=== PATIENT | female | born 1980 | race Caucasian/White ===

== ENCOUNTER → 2023-02-01 08:01 | Outpatient (BNVA) | payer OTHER, SELFPAY | PROVIDERS: PCP Family Medicine; Visit Provider Physician Assistant ==

== ENCOUNTER 2023-02-03 08:19 | Outpatient (AMB) | payer OTHER, SELFPAY ==
--- NOTE | 2023-02-03 10:42 | A.OFFVIS_ITS ---
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 Allergies No Known Allergies Allergy (Verified 02/03/23 10:42) Medication List - Last Reconciled 02/03/23 by Alfredito Field MD bupropion HCl (Wellbutrin XL) 150 mg PO QAM cholecalciferol (vitamin D3) 50 mcg PO DAILY hydrochlorothiazide 25 mg PO DAILY lactobacillus combination no.9 (Adult 50 Plus Probiotic) PO magnesium 400 mg PO DAILY metformin 500 mg PO DAILY sertraline (Zoloft) 50 mg PO DAILY valacyclovir 500 mg PO DAILY HPI 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 HPI Details Start time: 10.33am, End time: 11.33am ?I spent 55 minutes speaking with the patient on the phone plus an additional 5 minutes reviewing and updating records for a total of 60 minutes HPI Comments History of Present Illness Details Previous weight loss efforts: Fitness pal, Weight watchers, Atkins, [place], Medically supervised diet Wakes up: 6.30am, sleeps: 11.30pm Breakfast: 8am (cereal, bagel, eggs) Lunch: 12pm (pizza) Dinner: 6.30pm (pizza, burger, burrito) Snacks: 10am (fruit, or cheese and crackers), 3pm (cheese and crackers, bar), 8pm (sweets) Exercise: none, has home treadmill and rowing machine Fluids: Coffee 1 cup per day (creamer), tea: rarely, soda: none, juice: none, ETOH: 1/month [facility] Medical History (Updated 02/03/23 @ 10:50 by Alfredito Field MD) Knee pain Back pain Anxiety Depression Herpes, genital Sleep apnea treated with continuous positive airway pressure (CPAP) Hypertension Non-insulin dependent type 2 diabetes mellitus Morbid obesity Surgical History (Updated 02/03/23 @ 10:50 by Alfredito Field MD) H/O wisdom tooth extraction History of carpal tunnel release of both wrists History of tonsillectomy Assessment & Plan Assessment & Plan (1) Morbid obesity: Code(s): E66.01 - Morbid (severe) obesity due to excess calories Plan: 1.? Plan for lap sleeve gastrectomy. If diaphragmatic or ventral hernias are present at time of surgery, these will be repaired laparoscopically as well. Risks and complications were discussed in detail including possible conversion to an open procedure, anastomotic leak, bleeding requiring transfusion, small bowel obstruction, , DVT and pulmonary embolism, cardiac, or pulmonary complications, as insecticide maker complications such as anastomotic ulcer, insufficient weight loss and vitamin deficiencies. I emphasized the importance of close follow-up, adherence to instructions and good communication. 2. Nutritional counseling. Start with 2 CELEBRATE REBUILD protein (buy at [facility] [employer] [facility]) shakes (ONE scoop EACH in 8oz low fat unsweetened almond milk each) at 8am-10am and 11am-1pm, 1 protein bar (CELEBRATE protein bars, buy at [facility] [employer]) at 2pm-4pm, dinner at 5pm-6pm (12 forks of protein and 12 forks of salad/vegetables), one Celebrate bar at 7pm-9pm and another HALF protein bar at 10pm-11pm So you do 2 protein shakes, 2.5 protein bars and one meal per day. Meal to include lean meat (beef, fish, pork, turkey, chicken), or nigerian yogurt, or egg whites, or beans with a salad with olive oil and fruits (berries, pears, apples, kiwi). Avoid salt, breads, potatoes, rice, pasta, desserts. 3. Each shake would be drunk slowly, like coffee in a period of 2 hours. May add your coffee into your shakes, if flavors match. 4. Cut each bar in 4 pieces and eat each piece in 30min ?to make each bar last 2 hours. 5. I emphasized the importance of measuring accurately the food portion and measure it when serving the food in plate 6. The meal portions include 12 full-size forks of meat and 12 full-size forks of salad. You always eat the meat portion but you can replace up to 6 forks for salad/vegetables with rice, potatoes or pasta, or a fruit ?if you like. The less you do it the better weight loss will be. 7. One full-size fork is what it can be scooped on the fork without falling aside and not what can be bit with the fork. Use regular forks like those you find in a typical restaurant. 8.? Please send me weight measurements as soon as possible and then once a week. Always include your diet and exercise plan. 9. Start treadmill with an incline of 4.0 and speed of 3.5. Increase incline by 1 every 3 min to a max incline of 10.0, stay 3min at 10.0 and then return to 4.0 and repeat same steps until calorie goal is met. Goal is to burn 2000 calories per week on exercise, which means either 300 calories daily, or 400 calories 5 days per week, or 500 calories 4 days per week, or 650 calories 3 days per week. 10. You can also use some days your rowing machine for 300 calories, or split the workouts and do 150 calories at the treadmill and 150 calories at the rowing machine. 11.?It is important of avoiding and for at least 18 months postoperatively and has been discussed at the infosession. 12. Goal is to lose at least 1.5-2lbs per week 13. Goal to lose 10% of your weight before surgery, which is about 32lbs. Ultimate weight goal: 287lbs before surgery 14. Please follow the diet plan exactly without any change. If you don't like something about the plan or you feel hungry you need to communicate with me so I can help you revise the plan. You should not change the plan yourself. (2) Non-insulin dependent type 2 diabetes mellitus: Code(s): E11.9 - Type 2 diabetes mellitus without complications (3) Hypertension: Code(s): I10 - Essential (primary) hypertension (4) Sleep apnea treated with continuous positive airway pressure (CPAP): Code(s): G47.30 - Sleep apnea, unspecified Orders: Orders Insulin Today E11.9 - Type 2 diabetes mellitus without complications, E66.01 - Morbid (severe) obesity due to excess calories, G47.30 - Sleep apnea, unspecified, I10 - Essential (primary) hypertension IRON PROFILE Today E11.9 - Type 2 diabetes mellitus without complications, E66.01 - Morbid (severe) obesity due to excess calories, G47.30 - Sleep apnea, unspecified, I10 - Essential (primary) hypertension Complete Blood Count Auto Diff Today E11.9 - Type 2 diabetes mellitus without complications, E66.01 - Morbid (severe) obesity due to excess calories, G47.30 - Sleep apnea, unspecified, I10 - Essential (primary) hypertension Vitamin B12 and Folate Today E11.9 - Type 2 diabetes mellitus without complications, E66.01 - Morbid (severe) obesity due to excess calories, G47.30 - Sleep apnea, unspecified, I10 - Essential (primary) hypertension Vitamin A Today E11.9 - Type 2 diabetes mellitus without complications, E66.01 - Morbid (severe) obesity due to excess calories, G47.30 - Sleep apnea, unspecified, I10 - Essential (primary) hypertension C Reactive Protein Today E11.9 - Type 2 diabetes mellitus without complications, E66.01 - Morbid (severe) obesity due to excess calories, G47.30 - Sleep apnea, unspecified, I10 - Essential (primary) hypertension Ferritin Today E11.9 - Type 2 diabetes mellitus without complications, E66.01 - Morbid (severe) obesity due to excess calories, G47.30 - Sleep apnea, unspecified, I10 - Essential (primary) hypertension TSH reflex Free T4 Today E11.9 - Type 2 diabetes mellitus without complications, E66.01 - Morbid (severe) obesity due to excess calories, G47.30 - Sleep apnea, unspecified, I10 - Essential (primary) hypertension Vitamin D 25-OH Total Today E11.9 - Type 2 diabetes mellitus without c omplications, E66.01 - Morbid (severe) obesity due to excess calories, G47.30 - Sleep apnea, unspecified, I10 - Essential (primary) hypertension ECG 12 lead EKG Today E11.9 - Type 2 diabetes mellitus without complications, E66.01 - Morbid (severe) obesity due to excess calories, G47.30 - Sleep apnea, unspecified, I10 - Essential (primary) hypertension FL upper GI w air Today E11.9 - Type 2 diabetes mellitus without complications, E66.01 - Morbid (severe) obesity due to excess calories, G47.30 - Sleep apnea, unspecified, I10 - Essential (primary) hypertension Lipid Panel Today E11.9 - Type 2 diabetes mellitus without complications, E66.01 - Morbid (severe) obesity due to excess calories, G47.30 - Sleep apnea, u nspecified, I10 - Essential (primary) hypertension Zinc Today E11.9 - Type 2 diabetes mellitus without complications, E66.01 - Morbid (severe) obesity due to excess calories, G47.30 - Sleep apnea, unspecified, I10 - Essential (primary) hypertension Comprehensive Met. Panel Today E11.9 - Type 2 diabetes mellitus without complications, E66.01 - Morbid (severe) obesity due to excess calories, G47.30 - Sleep apnea, unspecified, I10 - Essential (primary) hypertension Vitamin B1 Today E11.9 - Type 2 diabetes mellitus without complications, E66.01 - Morbid (severe) obesity due to excess calories, G47.30 - Sleep apnea, unspecified, I10 - Essential (primary) hypertension PTHI Today E11.9 - Type 2 diabetes mellitus without complications, E66.01 - Morbid (severe) obesity due to excess calories, G47.30 - Sleep apnea, unspecified, I10 - Essential (primary) hypertension H Pylori Breath Test Today E11.9 - Type 2 diabetes mellitus without complications, E66.01 - Morbid (severe) obesity due to excess calories, G47.30 - Sleep apnea, unspecified, I10 - Essential (primary) hypertension Hemoglobin A1c Today E11.9 - Type 2 diabetes mellitus without complications, E66.01 - Morbid (severe) obesity due to excess calories, G47.30 - Sleep apnea, unspecified, I10 - Essential (primary) hypertension US abdomen comp w elastography Today E11.9 - Type 2 diabetes mellitus without complications, E66.01 - Morbid (severe) obesity due to excess calories, G47.30 - Sleep apnea, unspecified, I10 - Essential (primary) hypertension XR chest 2V Today E11.9 - Type 2 diabetes mellitus without complications, E66.01 - Morbid (severe) obesity due to excess calories, G47.30 - Sleep apnea, unspecified, I10 - Essential (primary) hypertension Referrals Behavioral Health Referral E11.9 - Type 2 diabetes mellitus without complications, E66.01 - Morbid (severe) obesity due to excess calories, G47.30 - Sleep apnea, unspecified, I10 - Essential (primary) hypertension Nutrition/Dietitian Referral E11.9 - Type 2 diabetes mellitus without complications, E66.01 - Morbid (severe) obesity due to excess calories, G47.30 - Sleep apnea, unspecified, I10 - Essential (primary) hypertension Telehealth Telehealth Location of provider rendering services: practice address Location of patient: address on file Patient Identification confirmed using: Name, : Yes Telehealth method: voice only Patient verbally consented to treatment: Yes Patient verbally consented to billing insurance company: Yes Patient informed of any privacy concerns related to visit: Yes Minutes spent on Phone/Video with Pt.: 60 Coding Level of Care Code Tele [facility] Pt Level 5 (44566) Diagnoses Morbid obesity E66.01 Non-insulin dependent type 2 diabetes mellitus E11.9 Hypertension I10 Sleep apnea treated with continuous positive airway pressure (CPAP) G47.30 Time Spent (min) 60
[2023-02-03 11:01] VITALS: BMI 45.8
== END 2023-02-03 11:34 | disposition home or self-care (01) ==
LOC: HO.HBS 08:19
PROVIDERS: PCP Family Medicine; Visit Provider Surgery
DX: E66.01 Morbid (severe) obesity due to excess calories (principal); Z68.42 Body mass index [BMI] 45.0-49.9, adult; G47.30 Sleep apnea, unspecified; E11.9 Type 2 diabetes mellitus without complications; I10 Essential (primary) hypertension
CPT/HCPCS: 99205

== ENCOUNTER → 2023-02-03 08:19 | Outpatient (BNVA) | payer OTHER, SELFPAY | PROVIDERS: PCP Family Medicine; Visit Provider Surgery ==

== ENCOUNTER 2023-02-15 07:39 | Outpatient (REF) | payer OTHER, SELFPAY ==
--- NOTE | 2023-02-15 07:46 | ECG_ITS ---
Test Reason : e66.01 Blood Pressure : / mmHG Vent. Rate : 082 BPM Atrial Rate : 082 BPM P-R Int : 142 ms QRS Dur : 080 ms QT Int : 402 ms P-R-T Axes : 060 051 054 degrees QTc Int : 469 ms Normal sinus rhythm Normal ECG No previous ECGs available Referred By: Alfredito Field Electronically Signed By:MELBA YA MD
[2023-02-15 08:09] LABS: MANUAL DIFF FLAG NO
[2023-02-15 08:25] LABS: Basophils Absolute Auto 0.1 X10*3/uL (0.0-0.2); Basophils Percent Auto 0.8 % (0-2); Eosinophils Absolute Auto 0.1 X10*3/uL (0.0-0.4); Eosinophils Percent Auto 2.4 % (0-4); Hematocrit 39.4 % (37.0-47.0); Hemoglobin 12.4 g/dl (12.0-16.0); Imm Gran Abs Auto 0.01 X10*3/uL (0.00-0.03); Imm Gran Pct Auto 0.2 % (0.0-0.4); Lymphocytes Absolute Auto 1.4 X10*3/uL (1.2-4.9); Lymphocytes Percent Auto 23.3 % (20-40); Mean Corpuscular HGB Conc 31.5 g/dl (31.0-35.0); Mean Corpuscular Hemoglobin 27.1 pg (27.0-33.0); Mean Corpuscular Volume 86.2 fL (80.0-98.0); Mean Platelet Volume 9.9 fL (9.4-12.3); Monocytes Absolute Auto 0.5 X10*3/uL (0.1-1.2); Monocytes Percent Auto 8.3 % (2-11); Neutrophils Absolute Auto 3.8 x10*3/uL (2.0-8.3); Platelet Count 293 X10*3/uL (160-400); Red Blood Count 4.57 X10*6/uL (4.20-5.50); Red Cell Distribution Width 13.4 % (11.0-16.0); White Blood Count 5.9 X10*3/uL (4.8-10.8)
[2023-02-15 08:32] LABS: Estimated Average Glucose 123 mg/dL; Hemoglobin A1c % 5.9 % (<6.0)
[2023-02-15 08:50] LABS: Alanine Aminotransferase 23 U/L (0-31); Albumin Level 4.1 g/dL (3.5-5.0); Alkaline Phosphatase 61 U/L (39-117); Anion Gap 11 (12-20); Aspartate Amino Transferase 18 U/L (5-31); Bilirubin Total 0.5 mg/dL (0.0-1.0); Blood Urea Nitrogen 12 mg/dL (9-16); Calcium 9.2 mg/dL (8.4-10.2); Carbon Dioxide 26 mmol/L (22-29); Chloride 103 mmol/L (96-108); Cholesterol 219 mg/dL (<200); Estimated Glomerular Filt Rate > 60; Glucose Random 123 mg/dL (60-115); HDL Cholesterol 51 mg/dL (>40); Iron 78 mcg/dL (30-160); LDL Cholesterol Calculated 139 mg/dL (<100); Percent Iron Saturation 25 % (15-50); Potassium 3.8 mmol/L (3.3-5.1); Sodium 136 mmol/L (135-145); Total Iron Binding Capacity 311 mcg/dL (228-428); Total Protein 7.6 g/dL (6.5-8.0); Triglycerides 149 mg/dL (<150); Unsaturated Iron Binding 233 ug/dL
[2023-02-15 09:04] LABS: Ferritin 54 ng/mL (10-250); Insulin 18 uU/mL (2-29); TSH reflex Free T4 1.25 uIU/mL (0.32-4.0); Vitamin D 25-OH Total 33.2 ng/mL (>30)
[2023-02-15 09:20] LABS: Vitamin B12 847 pg/mL (200-900)
[2023-02-16 16:28] LABS: Calcium (PTHI) 9.1 mg/dL (8.6-10.2); PTHI 33 pg/mL (16-77)
[2023-02-19 02:14] LABS: Zinc 103 mcg/dL (60-130)
[2023-02-19 18:19] LABS: Vitamin A 52 mcg/dL (38-98)
[2023-02-20 15:14] LABS: Vitamin B1 <6 nmol/L (8-30)
== END 2023-02-15 07:40 | disposition home or self-care (01) ==
LOC: HO.LAB 07:39
PROVIDERS: PCP Family Medicine; Visit Provider Surgery
DX: E66.01 Morbid (severe) obesity due to excess calories (principal); E11.9 Type 2 diabetes mellitus without complications; I10 Essential (primary) hypertension; G47.30 Sleep apnea, unspecified
CPT/HCPCS: 36415; 80053; 80061; 82306; 82607; 82728; 82746; 83036; 83525; 83540; 83970; 84425; 84443; 84590; 84630; 85025; 86140; 93005

== ENCOUNTER 2023-02-28 08:10 | Outpatient (AMB) | payer OTHER, SELFPAY ==
--- NOTE | 2023-02-28 09:24 | MHC.OFFVISWM ---
Intake VS Expanded 02/28/23 09:47 Height 5 ft 10 in Weight 306 lb 2 oz BMI 43.9 Body Fat % 57.7 Body Fat Mass 176.6 Fat Free Mass 129.5 Body Water % 43 Body Water Mass 131.6 Intake Visit Reasons: TV Follow Up SWL - 1ST Allergies No Known Allergies Allergy (Verified 02/03/23 10:42) HPI TV Follow Up SWL - 1ST HPI Details Start time: 9.28am, End time: 9.58am ?I spent 25 minutes speaking with the patient on the phone plus an additional 5 minutes reviewing and updating records for a total of 30 minutes HPI Comments History of Present Illness Details Overall weight loss: 13lbs, or 4.07% TBWL Did not like the Celebrate shakes and bars and was using [employer] Lablife shakes and one meal Exercise: hiking x2/wk [facility] Medical History (Updated 02/26/23 @ 10:55 by Alfredito Field MD) Knee pain Back pain Anxiety Depression Herpes, genital Sleep apnea treated with continuous positive airway pressure (CPAP) Hypertension Non-insulin dependent type 2 diabetes mellitus Morbid obesity Surgical History (Updated 02/03/23 @ 10:50 by Alfredito Field MD) H/O wisdom tooth extraction History of carpal tunnel release of both wrists History of tonsillectomy Assessment & Plan Assessment & Plan (1) Vitamin B1 deficiency: Code(s): E51.9 - Thiamine deficiency, unspecified (2) Morbid obesity: Code(s): E66.01 - Morbid (severe) obesity due to excess calories Plan: 1. Please change nutritional plan to 2 ORGAIN protein shakes (ONE scoop EACH in 8oz low fat unsweetened almond milk each) at 8am-10am and 11am-1pm, 1 Zone Perfect protein bar at 2pm-4pm, dinner at 5pm-6pm (12 forks of protein and 12 forks of salad/vegetables), one Zone Perfect protein bar at 7pm-9pm and another HALF protein bar at 10pm-11pm. 2. Continue hiking 2/week but track calories you burn with a goal of burning a total of 500 calories these 2 days 3. Start treadmill with an incline of 2.0 and speed of 3.0. Increase incline by 1 every 3 min to a max incline of 8.0, stay 3min at 8.0 and then return to 2.0 and repeat same steps until calorie goal is met. Goal is to burn 2000 calories per week on exercise, which means either 500 calories per work-out, 3 days per week (plus the 2 days of hiking). 4. Continue to send me weight measurements weekly on Fridays Medications: New thiamine HCl (vitamin B1) 100 mg PO DAILY 30 tabs 2RF E51.9 - Thiamine deficiency, unspecified Telehealth Telehealth Location of provider rendering services: practice address Location of patient: address on file Patient Identification confirmed using: Name, : Yes Telehealth method: voice only Patient verbally consented to treatment: Yes Patient verbally consented to billing insurance company: Yes Patient informed of any privacy concerns related to visit: Yes Minutes spent on Phone/Video with Pt.: 30 Coding Level of Care Code Tele Est Pt Level 4 (00544) Diagnoses Vitamin B1 deficiency E51.9 Morbid obesity E66.01 Time Spent (min) 30
[2023-02-28 09:47] VITALS: BMI 43.9
== END 2023-02-28 09:59 | disposition home or self-care (01) ==
LOC: HO.HBS 08:10
PROVIDERS: PCP Family Medicine; Visit Provider Surgery
DX: E51.9 Thiamine deficiency, unspecified (principal); E66.01 Morbid (severe) obesity due to excess calories
CPT/HCPCS: 99214

== ENCOUNTER → 2023-02-28 08:10 | Outpatient (BNVA) | payer OTHER, SELFPAY | PROVIDERS: PCP Family Medicine; Visit Provider Surgery ==

== ENCOUNTER 2023-03-08 14:10 | Outpatient (AMB) | payer OTHER, SELFPAY ==
--- NOTE | 2023-03-08 14:04 | A.OFFVIS_ITS ---
Intake Intake Visit Reasons: VIDEO Initial Nutrition SWL Allergies No Known Allergies Allergy (Verified 02/03/23 10:42) HPI Nutrition Presentation Reason for consult elevated BMI Diet Assmnt Details I am hungry all the time I am hangry , she is very tearful today. we had an indept discussion about her food philosophy and preferences Very chaotic lifestyle , on the go , sometimes doesn't have time to plan meals correctly. Dietary counseling reduction Diagnosis Nutrition problem #1 overweight/obesity As related to (etiology) #1 excess energy intake and physical inactivity As evidenced by (sign/symptom) #1 high BMI Monitoring/Goals Nutrition problem monitoring total energy intake, level of knowledge/skill, total PRO intake, weight and oral fluids Outcome progress progressing Learning/Education Readiness to learn good Stages of change action Most Recent Diabetes Results: Cholesterol 219 mg/dL (<200) H 02/15/23 HDL Cholesterol 51 mg/dL (>40) 02/15/23 Triglycerides 149 mg/dL (<150) 02/15/23 Creatinine 0.76 mg/dL (0.5-1.4) 02/15/23 Blood Urea Nitrogen 12 mg/dL (9-16) 02/15/23 Sodium 136 mmol/L (135-145) 02/15/23 Potassium 3.8 mmol/L (3.3-5.1) 02/15/23 Chloride 103 mmol/L (96-108) 02/15/23 Carbon Dioxide 26 mmol/L (22-29) 02/15/23 Calcium 9.2 mg/dL (8.4-10.2) 02/15/23 AST 18 U/L (5-31) 02/15/23 ALT 23 U/L (0-31) 02/15/23 Total Protein 7.6 g/dL (6.5-8.0) 02/15/23 Albumin 4.1 g/dL (3.5-5.0) 02/15/23 [facility] Medical History (Updated 02/26/23 @ 10:55 by Alfredito Field MD) Knee pain Back pain Anxiety Depression Herpes, genital Sleep apnea treated with continuous positive airway pressure (CPAP) Hypertension Non-insulin dependent type 2 diabetes mellitus Morbid obesity Surgical History (Updated 02/03/23 @ 10:50 by Alfredito Field MD) H/O wisdom tooth extraction History of carpal tunnel release of both wrists History of tonsillectomy Assessment & Plan Assessment & Plan (1) Morbid obesity: Code(s): E66.01 - Morbid (severe) obesity due to excess calories Plan nutrition f/u as needed . pt will discuss concerns with surgeon Telehealth Telehealth Location of provider rendering services: practice address Location of patient: address on file Patient Identification confirmed using: Name, : Yes Telehealth method: video Patient verbally consented to treatment: Yes Patient verbally consented to billing insurance company: Yes Patient informed of any privacy concerns related to visit: Yes Minutes spent on Phone/Video with Pt.: 30 Coding Level of Care Code Nutr Indiv Intake (24158) Diagnoses Morbid obesity E66.01 Time Spent (min) 30
== END 2023-03-08 15:01 | disposition home or self-care (01) ==
LOC: HO.HBS 14:10
PROVIDERS: PCP Family Medicine; Visit Provider Dietitian, Registered
DX: E66.01 Morbid (severe) obesity due to excess calories (principal)

== ENCOUNTER → 2023-03-08 14:10 | Outpatient (BNVA) | payer OTHER, SELFPAY | PROVIDERS: PCP Family Medicine; Visit Provider Dietitian, Registered | DX: E66.01 Morbid (severe) obesity due to excess calories (principal); E11.9 Type 2 diabetes mellitus without complications; Z71.3 Dietary counseling and surveillance | CPT/HCPCS: 97802 ==

== ENCOUNTER 2023-03-09 09:28 | Outpatient (REF) | payer OTHER, SELFPAY ==
--- NOTE | ~2023-03-09 | XR_ITS ---
EXAMINATION: XR CHEST CLINICAL INFORMATION: Morbid obesity COMPARISON: None available. TECHNIQUE: 2 views of the chest were obtained. FINDINGS: Right basilar atelectasis. No pneumothorax. Trachea is midline. Cardiac mediastinal silhouette is not enlarged. No large pleural effusion. Degenerative changes of the thoracolumbar spine. Soft tissues are unremarkable. XR/XR chest 2V IMPRESSION: Right basilar atelectasis.
--- NOTE | ~2023-03-09 | US_ITS ---
EXAMINATION: US COMPLETE ABDOMEN WITH LIVER ELASTOGRAPHY CLINICAL INFORMATION: Morbid obesity. COMPARISON: None available. TECHNIQUE: Real-time imaging of the abdominal viscera. Noninvasive ultrasound liver fibrosis assessment is performed using [employer] ElastPQ point quantification shear wave elastography (2D-SWE) with a C5-2 MHz transducer. Multiple elastography samples are obtained. FINDINGS: PANCREAS: Limited. The visualized pancreatic head and body are normal in appearance. The remainder of the pancreas is obscured from visualization by the overlying bowel gas. ABDOMINAL AORTA: The proximal, middle, and distal aortic segments are normal in caliber. INFERIOR VENA CAVA: Visualized portions are normal. LIVER: Normal. The liver demonstrates normal size, contour and echogenicity. No focal lesion or intrahepatic biliary duct dilatation. The right lobe measures 17.2 cm in length. The left lobe measures 9.3 cm in length. Portal flow is towards the liver (hepatopetal). Shear wave liver elastography median stiffness is 1.37 m/s (reference: normal median stiffness is 1.3 m/s or less). IQR/median stiffness to assess sampling precision is 0.15 (reference: good quality data set is IQR/median stiffness of 0.15 or less). GALLBLADDER: Normal. The gallbladder is physiologically distended without evidence of stones, sludge, polyps, wall thickening or pericholecystic fluid. COMMON BILE DUCT: Normal in caliber measuring 0.3 cm in diameter. RIGHT KIDNEY: Normal. No hydronephrosis. No renal calculi or focal parenchymal lesions. The kidney measures 12.7 cm in maximum dimension. LEFT KIDNEY: Normal. No hydronephrosis. No renal calculi or focal parenchymal lesions. The kidney measures 12.1 cm in maximum dimension. SPLEEN: Normal. The spleen measures 11.9 cm in maximum dimension. FREE FLUID: None. US/US abdomen comp w elastography IMPRESSION: 1. There is generalized increase in hepatic echotexture, consistent with fatty infiltration or hepatocellular disease. Please correlate clinically. No focal hepatic mass or intrahepatic biliary dilatation is seen. 2. There is borderline hepatomegaly. 3. Liver elastography: In the absence of other known clinical signs, measurements rule out compensated advanced chronic liver disease. If there are known clinical signs, further testing may be needed for confirmation. 4. Technically limited ultrasound examination of the pancreatic tail. REFERENCE: Society of Radiologists in Ultrasound Liver Stiffness Thresholds (2020): LIVER STIFFNESS THRESHOLDS: *Liver Stiffness equal or less than 1.3 m/s: High probability of being normal. *Liver Stiffness less than 1.7 m/s: In the absence of other known clinical signs, rules out compensated advanced chronic liver disease. *Liver Stiffness 1.7-2.1 m/s: Suggestive of compensated advanced chronic liver disease but need further test for confirmation. *Liver Stiffness over 2.1 m/s: Rules in compensated advanced chronic liver disease. *Liver Stiffness over 2.4 m/s: Suggestive of clinically significant portal hypertension. QUALITY OF DATA SET: *IQR/Median value equal or less than 0.15 implies a quality data set. *IQR/Median value over 0.15 implies a poor quality data set. SIGNIFICANT CHANGE FROM PRIOR EXAM: Significant change if liver stiffness measurement is 10% or greater from prior exam. OTHER CONSIDERATIONS: The stage of liver fibrosis may be overestimated in the setting of acute hepatitis, liver inflammation, elevated liver function tests, hepatic vascular congestion, obstructive cholestasis, non-fasting state, and infiltrative diseases such as amyloidosis and lymphoma. In some patients with NAFLD, the liver stiffness thresholds for compensated advanced chronic liver disease may be lower. In causes other than viral hepatitis and NAFLD, liver stiffness thresholds are not well established.
[2023-03-12 13:45] LABS: H Pylori Breath Test Negative (Negative)
== END 2023-03-09 09:29 | disposition home or self-care (01) ==
LOC: HO.US 09:28
PROVIDERS: PCP Family Medicine; Visit Provider Surgery
DX: E66.01 Morbid (severe) obesity due to excess calories (principal); E11.9 Type 2 diabetes mellitus without complications; I10 Essential (primary) hypertension; G47.30 Sleep apnea, unspecified
CPT/HCPCS: 71046; 76705; 76981; 83013; 99211

== ENCOUNTER 2023-03-17 15:35 | Outpatient (AMB) | payer OTHER, SELFPAY ==
--- NOTE | 2023-03-17 15:36 | MHC.WMTHER ---
Intake Intake Visit Reasons: VIDEO BH Intake Allergies No Known Allergies Allergy (Verified 02/03/23 10:42) [facility] Medical History (Updated 02/26/23 @ 10:55 by Alfredito Field MD) Knee pain Back pain Anxiety Depression Herpes, genital Sleep apnea treated with continuous positive airway pressure (CPAP) Hypertension Non-insulin dependent type 2 diabetes mellitus Morbid obesity Surgical History (Updated 02/03/23 @ 10:50 by Alfredito Field MD) H/O wisdom tooth extraction History of carpal tunnel release of both wrists History of tonsillectomy Behavioral Health Assessment Weight Management Therapy Therapy Notes Details Pt is looking to have weight loss surgery to help improve her health and quality of life. She reported being in pain and tired. Also worries about her health. Patient is in therapy with Giselle Flores bi weekly. She is taking medication for anxiety and depression by her primary care doctor due to depression each time she had children. Also diagnosed with ADHD and given Well butrin to help with weight loss, ADHD, and anxiety. Presenting Concerns Referral Source provider Reason for referral weight loss surgery evaluation Precipitating Event obesity Living Situation Current Living Situation Own At risk of losing current housing? No Satisfied with current living situation? Yes Comments Patient lives with her and three children ages 5, 8, and 10 years old. Food/Weight/Diet Expectations of change weight loss and maintenance History/Relationship with food Pt stated that History/Relationship with weight She reported life long struggles with weight. History/Relationship with dieting She reported being on every single diet , gaining, and loosing many different times. Questionnaires PHQ-9 Over the last 2 weeks, how often have you been bothered by any of the following problems? 1. Little interest or pleasure in doing things: not at all 2. Feeling down, depressed, or hopeless: not at all 3. Trouble falling or staying asleep, or sleeping too much: several days 4. Feeling tired or having little energy: several days 5. Poor appetite or overeating: several days 6. Feeling bad about yourself - or that you are a failure or have let yourself or your family down: several days 7. Trouble concentrating on things, such as reading the newspaper or watching television: several days 8. Moving or speaking so slowly that other people could have noticed. Or the opposite - being so fidgety or restless that you have been moving around a lot more than usual: several days 9. Thoughts that you would be better off or of hurting yourself in some way: not at all Total score: 6 Source: Developed by Drs. Rashard Duenas, Jodi Shaikh, Pravin Haley and colleagues, with an educational rashmi from [employer]. Binge Eating Scale Group 1 A. I don't feel self-conscious about my wt. or body size when I'm with others. B. I feel concerned about how I look to others, but it normally does not make me fell disappointed with myself C. I do get self-conscious about my appearance and wt. which makes me feel disappointed in myself. D. I feel very self-conscious about my wt. and frequently I feel intense shame and disgust for myself. I try to avoid social contacts because of my self-consciousness. Response Group 1: B Group 2 A. I don't have any difficulty eating slowly in the proper manner. B. Although I seem to gobble down foods, I don't end up feeling stuffed because of eating to much. C. At times, I tend to eat quickly and then, I feel uncomfortably full afterwards. D. I have the habit of bolting down my food, without really chewing it. When this happens I usually feel uncomfortably stuffed because I've eaten to much. Response Group 2: C Group 3 A. I feel capable to control my eating urges when I want to. B. I feel like I have failed to control my eating more than the average person. C. I feel utterly helpless when it comes to feeling in control of my eating urges. D. Because I feel so helpless about controlling my eating I have become very desperate about trying to get control. Response Group 3: B Group 4 A. I don't have the habit of eating when I'm bored. B. I sometimes eat when I'm bored, but often I'm able to get busy and get my mind off food. C. I have a regular habit of eating when I'm bored, but occasionally, I can use some other activity to get my mind off eating. D. I have a strong habit of eating when I'm bored. Nothing seems to help me breath the habit. Response Group 4: C Group 5 A. I'm usually physically hungry when I eat something. B. Occasionally, I eat something on impulse even though I really am not hungry. C. I have the regular habit of eating foods, that I might not really enjoy, to satisfy a hungry feeling even though physically, I don't need the food. D. Although I'm not physically hungry, I get a hungry feeling in my mouth that only seems to be satisfied when I eat a food, like sandwich, that fills my mouth. Sometimes, when I eat the food to satisfy my mouth hunger, I then spit the food out so I won't gain weight. Response Group 5: C Group 6 A. I don't feel any guilt or self-hate after I overeat. B. After I overeat, occasionally I feel guilt or self-hate. C. Almost all the time I experience strong guilt or self-hate after I overeat. Response Group 6: B Group 7 A. I don't lose total control of my eating when dieting even after periods when I overeat. B. Sometimes when I eat a forbidden food on a diet, I feel like I blew it and eat even more. C. Frequently, I have the habit of saying to myself, I've blown it now, why not go all the way, when I overeat on a diet. When that happens I eat more. D. I have a regular habit of starting a strict diets for myself but I break the diets by going on an eating binge. My life seems to be either a feast or famine. Response Group 7: B Group 8 A. I rarely eat so much food that I feel uncomfortably stuffed afterwards. B. Usually about once a month, I each such a quantity of food, I end up feeling very stuffed. C. I have regular periods during the month when I eat large amounts of food, either at mealtime or at snacks. D. I eat so much food that I regularly feel quite uncomfortable after eating and sometimes a bit nauseous. Response Group 8: C Group 9 A. My level of calorie intake does not go up very high or go down very low on a regular basis. B. Sometimes after I overeat, I will try to reduce my caloric intake to almost nothing to compensate for the excess calories I've eaten. C. I have a regular habit of overeating during the night. It seems that my routine is not to be hungry in the morning but overeat in the evening. D. In my adult years, I have had week-long periods where I practically starve myself. This follows periods when I overeat. It seems I live a life of either feast or famine. Response Group 9: A Group 10 A. I usually am able to stop eating when I want to. I know when enough is enough. B. Every so often, I experience a compulsion to eat which I can't seem to control. C. Frequently, I experience strong urges to eat which I seem unable to control, but at other times I can control my eating urges. D. I feel incapable of controlling urges to eat. I have a fear of not being able to stop eating voluntarily. Response Group 10: C Group 11 A. I don't have any problem stopping eating when I feel full. B. I usually can stop eating when I feel full but occasionally overeat leaving me feeling uncomfortably stuffed. C. I have a problem stopping eating once I start and usually I feel uncomfortably stuffed after I eat a meal. D. Because I have a problem not being able to stop eating when I want, I sometimes have to induce vomiting to relieve my stuffed feeling. Response Group 11: B Group 12 A. I seem to eat just as much when I'm with others, Family social gatherings as when I'm by myself. B. Sometimes, when I'm with other persons, I don't eat as much as I want to eat because I'm self-conscious about my eating. C. Frequently, I eat only a small amount of food when others are present, because I'm very embarrassed about my eating. D. I feel so ashamed about overeating that I pick times to overeat when I know no one will see me. I feel like a closet eater. Response Group 12: B Group 13 A. I eat three meals a day with only an occasional between meal snack. B. I eat 3 meals a day, but I also normally snack between meals. C. When I am snacking heavily, I get in the habit of skipping regular meals. D. There are regular periods when I seem to be continually eating, with no planned meals. Response Group 13: B Group 14 A. I don't think much about trying to control unwanted eating urges. B. At least some of the time, I feel my thoughts are pre-occupied with trying to control my eating urges. C. I feel that frequently I spend much time thinking about how much I ate or about trying not to eat anymore. D. It seems to me that most of my waking hours are pre-occupied by thoughts about eating or not eating. I feel like I'm constantly struggling not to eat. Response Group 14: B Group 15 A. I don't think about food a great deal. B. I have strong craving for food but they last only for brief periods of time. C. I have days when I can't seem to think about anything else but food. D. Most of my days seem to be pre-occupied with thoughts about food. I feel like I live to eat. Response Group 15: C Group 16 A. I usually know whether or not I'm physically hungry. I take the right portion of food to satisfy me. B. Occasionally, I feel uncertain about knowing whether or not I'm physically hungry. A these times it's hard to know how much food I should take to satisfy me. C. Even though I might know how many calories I should eat, I don't have any idea what is a normal amount of food for me. Response Group 16: B Binge Eating Score: 21 Score less than 17 Minimal Risk Score between 18-26 Moderate Risk Score between 27-46 High Risk Assessment & Plan Assessment & Plan (1) Anxiety: Code(s): F41.9 - Anxiety disorder, unspecified (2) Depression: Code(s): F32.A - Depression, unspecified (3) Morbid obesity: Code(s): E66.01 - Morbid (severe) obesity due to excess calories Plan Patient will be re-seen next week. Telehealth Telehealth Location of provider rendering services: other Location of patient: other Patient Identification confirmed using: Name, : Yes Telehealth method: video Patient verbally consented to treatment: Yes Patient verbally consented to billing insurance company: Yes Patient informed of any privacy concerns related to visit: Yes Minutes spent on Phone/Video with Pt.: 25 Coding Level of Care Code Tele Psy Diag Eval (90004) Diagnoses Anxiety F41.9 Depression F32.A Morbid obesity E66.01 Time Spent (min) 25
== END 2023-03-17 15:59 | disposition home or self-care (01) ==
LOC: HO.HBST 15:35
PROVIDERS: PCP Family Medicine; Visit Provider Counselor Mental Health
DX: F41.9 Anxiety disorder, unspecified (principal); F32.A Depression, unspecified; E66.01 Morbid (severe) obesity due to excess calories
CPT/HCPCS: 90791

== ENCOUNTER → 2023-03-17 15:35 | Outpatient (BNVA) | payer OTHER, SELFPAY | PROVIDERS: PCP Family Medicine; Visit Provider Counselor Mental Health ==

== ENCOUNTER 2023-03-21 07:59 | Outpatient (AMB) | payer OTHER, SELFPAY ==
--- NOTE | 2023-03-21 09:51 | A.OFFVIS_ITS ---
Intake VS Expanded 03/21/23 10:16 Height 5 ft 10 in Weight 305 lb 2 oz BMI 43.8 Body Fat % 57.4 Body Fat Mass 175.1 Fat Free Mass 130 Body Water % 43 Body Water Mass 131.2 Intake Visit Reasons: TV Follow Up SWL Allergies No Known Allergies Allergy (Verified 02/03/23 10:42) HPI TV Follow Up SWL HPI Details Start time: 9.56am, End time: 10.26am ?I spent 25 minutes speaking with the patient on the phone plus an additional 5 minutes reviewing and updating records for a total of 30 minutes HPI Comments History of Present Illness Details Overall weight loss: 14lbs or 4.39% TBWL Is dong one Celebrate Rebuild with two scoops in 8oz almond milk, 2 Celebrate bars and one meal (not measuring portions) snacks: cheese sticks Exercise: is doing treadmill at home 3-4 times per week for 300-400 calories PFSH Medical History (Updated 02/26/23 @ 10:55 by Alfredito Field MD) Knee pain Back pain Anxiety Depression Herpes, genital Sleep apnea treated with continuous positive airway pressure (CPAP) Hypertension Non-insulin dependent type 2 diabetes mellitus Morbid obesity Surgical History (Updated 02/03/23 @ 10:50 by Alfredito Field MD) H/O wisdom tooth extraction History of carpal tunnel release of both wrists History of tonsillectomy Assessment & Plan Assessment & Plan (1) Morbid obesity: Code(s): E66.01 - Morbid (severe) obesity due to excess calories Plan: 1. Change nutritional plan to one Celebrate Rebuild shake (2 scoops in 8oz almond milk) at 8am-10am, the Pea Crisps bag at at 12pm-2pm, one Celebrate or Zone Perfect protein bar at 3pm-5pm, the meal at 6pm (12 forks of protein and 12 forks of salad, or 24 forks total) and one Celebrate or Zone Perfect bar at 8pm- 10pm 2. Do not skip any of the protein supplements 3. Always measure the food portions in forkfuls 4. Change treadmill with an incline of 2.0 and speed of 3.0. Increase incline by 1 every 3 min to a max incline of 8.0, stay 3min at 8.0 and then return to 2.0 and repeat same steps until calorie goal is met. Goal is to burn 2000 calories per week on the treadmill exclusively, which means either 300 calories daily, or 400 calories 5 days per week, or 500 calories 4 days per week, or 650 calories 3 days per week. Any other exercise activity should be only in addition to the 2000 calories on the treadmill 5. Take the Phentermine daily at 11am 6. We discussed the potential side-effects of the Phentermine such as irritability, dry mouth, difficulty sleeping, dizziness, numbness in feet and high blood pressure. I asked her to get a blood pressure monitor and measure the blood pressure daily in the morning and evening. She needs to send the blood pressure readings daily and to call the office for blood pressure over 140/80 and she understands that. Medications: New phentermine must administer 30 minutes before or 1-2 hours after breakfast 37.5 mg PO DAILY 14 caps 0RF E66.01 - Morbid (severe) obesity due to excess calories Telehealth Telehealth Location of provider rendering services: practice address Location of patient: address on file Patient Identification confirmed using: Name, : Yes Telehealth method: voice only Patient verbally consented to treatment: Yes Patient verbally consented to billing insurance company: Yes Patient informed of any privacy concerns related to visit: Yes Minutes spent on Phone/Video with Pt.: 30 Coding Level of Care Code Tele Est Pt Level 4 (21277) Diagnoses Morbid obesity E66.01 Time Spent (min) 30
[2023-03-21 10:16] VITALS: BMI 43.8
== END 2023-03-21 10:27 | disposition home or self-care (01) ==
LOC: HO.HBS 07:59
PROVIDERS: PCP Family Medicine; Visit Provider Surgery
DX: E66.01 Morbid (severe) obesity due to excess calories (principal)
CPT/HCPCS: 99214

== ENCOUNTER → 2023-03-21 07:59 | Outpatient (BNVA) | payer OTHER, SELFPAY | PROVIDERS: PCP Family Medicine; Visit Provider Surgery ==

== ENCOUNTER 2023-03-24 09:14 | Outpatient (AMB) | payer OTHER, SELFPAY ==
--- NOTE | 2023-03-24 09:04 | MHC.AMNUTRGE ---
Intake Intake Visit Reasons: VIDEO F/U SWL Allergies No Known Allergies Allergy (Verified 02/03/23 10:42) HPI Nutrition Presentation Details FIRST ASSISTANT weight 319# current weight 299# Reason for consult elevated BMI Diet Assmnt Details she is still not clear on the rationale for her nutrition plan after speaking with surgeon. She states it would be very helpful to have an understanding. Currently she is struggling be consistent given her chaotic schedule and at home life. Needs convenient options for dinners for herslef and kids and also snacks when feeling hungry Wants to practice mindful eating, discussed how to continue implementing this, encouraged mindful eating practices Really enjoys HIIT workouts , encouraged she continue with this as she enjoys it Dietary counseling reduction Diagnosis Nutrition problem #1 overweight/obesity As related to (etiology) #1 excess energy intake and physical inactivity As evidenced by (sign/symptom) #1 high BMI Monitoring/Goals Nutrition problem monitoring total energy intake, level of knowledge/skill, total PRO intake, weight and oral fluids Outcome progress progressing Learning/Education Readiness to learn good Stages of change action Most Recent Diabetes Results: Cholesterol 219 mg/dL (<200) H 02/15/23 HDL Cholesterol 51 mg/dL (>40) 02/15/23 Triglycerides 149 mg/dL (<150) 02/15/23 Creatinine 0.76 mg/dL (0.5-1.4) 02/15/23 Blood Urea Nitrogen 12 mg/dL (9-16) 02/15/23 Sodium 136 mmol/L (135-145) 02/15/23 Potassium 3.8 mmol/L (3.3-5.1) 02/15/23 Chloride 103 mmol/L (96-108) 02/15/23 Carbon Dioxide 26 mmol/L (22-29) 02/15/23 Calcium 9.2 mg/dL (8.4-10.2) 02/15/23 AST 18 U/L (5-31) 02/15/23 ALT 23 U/L (0-31) 02/15/23 Total Protein 7.6 g/dL (6.5-8.0) 02/15/23 Albumin 4.1 g/dL (3.5-5.0) 02/15/23 [facility] Medical History (Updated 02/26/23 @ 10:55 by Alfredito Field MD) Knee pain Back pain Anxiety Depression Herpes, genital Sleep apnea treated with continuous positive airway pressure (CPAP) Hypertension Non-insulin dependent type 2 diabetes mellitus Morbid obesity Surgical History (Updated 02/03/23 @ 10:50 by Alfredito Field MD) H/O wisdom tooth extraction History of carpal tunnel release of both wrists History of tonsillectomy Assessment & Plan Assessment & Plan (1) Morbid obesity: Code(s): E66.01 - Morbid (severe) obesity due to excess calories Plan Patient is cleared from a nutrition standpoint for bariatric surgery. Educational requirements have been completed. Reviewed vitamin supplementation and commitment to protein shake for several months post surgery. Encouraged communication with office as needed Telehealth Telehealth Location of provider rendering services: practice address Location of patient: address on file Patient Identification confirmed using: Name, : Yes Telehealth method: video Patient verbally consented to treatment: Yes Patient verbally consented to billing insurance company: Yes Patient informed of any privacy concerns related to visit: Yes Minutes spent on Phone/Video with Pt.: 30 Coding Level of Care Code Nutr Indiv Subseq ([id number]) Diagnoses Morbid obesity E66.01 Time Spent (min) 30
== END 2023-03-24 10:27 | disposition home or self-care (01) ==
LOC: HO.HBS 09:14
PROVIDERS: PCP Family Medicine; Visit Provider Dietitian, Registered
DX: E66.01 Morbid (severe) obesity due to excess calories (principal)

== ENCOUNTER → 2023-03-24 09:14 | Outpatient (BNVA) | payer OTHER, SELFPAY | PROVIDERS: PCP Family Medicine; Visit Provider Dietitian, Registered | DX: E66.01 Morbid (severe) obesity due to excess calories (principal); E11.9 Type 2 diabetes mellitus without complications; Z71.3 Dietary counseling and surveillance | CPT/HCPCS: 97803 ==

== ENCOUNTER 2023-04-15 08:18 | Outpatient (AMB) | payer OTHER, SELFPAY ==
--- NOTE | 2023-04-15 12:38 | MHC.OFFVISWM ---
Intake VS Expanded 04/15/23 12:52 Height 5 ft 10 in Weight 302 lb BMI 43.3 Body Fat % 56.8 Body Fat Mass 171.5 Fat Free Mass 130.4 Body Water % 56.8 Body Water Mass 171.5 Intake Visit Reasons: TV Follow Up SWL Allergies No Known Allergies Allergy (Verified 02/03/23 10:42) HPI TV Follow Up SWL HPI Details Start time: 12.35pm, End time: 12.57pm ?I spent 17 minutes speaking with the patient on the phone plus an additional 5 minutes reviewing and updating records for a total of 22 minutes HPI Comments History of Present Illness Details Overall weight loss: 17.2lbs, or 5.4% TBWL Is doing a protein shake (2 scoops) , 3 protein bars and one meal (12 forks of protein and 12 forks of salad Exercise: is doing home treadmill x 4/week for 400 calories (speed and incline) and gym x 2/wk (HIT classes) [facility] Medical History (Updated 02/26/23 @ 10:55 by Alfredito Field MD) Knee pain Back pain Anxiety Depression Herpes, genital Sleep apnea treated with continuous positive airway pressure (CPAP) Hypertension Non-insulin dependent type 2 diabetes mellitus Morbid obesity Surgical History (Updated 02/03/23 @ 10:50 by Alfredito Field MD) H/O wisdom tooth extraction History of carpal tunnel release of both wrists History of tonsillectomy Assessment & Plan Assessment & Plan (1) Morbid obesity: Code(s): E66.01 - Morbid (severe) obesity due to excess calories Plan: 1. Continue same nutritional plan of a protein shake (2 scoops), 3 protein bars and one meal (12 forks of protein and 12 forks of salad or vegetables) 2. Exercise: continue home treadmill x 4/week for 400 calories (speed and incline) and gym x 2/wk (HIT classes) 3. Continue to send me weight measurements weekly on Fridays Telehealth Telehealth Location of provider rendering services: practice address Location of patient: address on file Patient Identification confirmed using: Name, : Yes Telehealth method: voice only Patient verbally consented to treatment: Yes Patient verbally consented to billing insurance company: Yes Patient informed of any privacy concerns related to visit: Yes Minutes spent on Phone/Video with Pt.: 22 Coding Level of Care Code Tele Est Pt Level 3 (82077) Diagnoses Morbid obesity E66.01 Time Spent (min) 22
[2023-04-15 12:52] VITALS: BMI 43.3
== END 2023-04-15 12:58 | disposition home or self-care (01) ==
LOC: HO.HBS 08:19
PROVIDERS: PCP Family Medicine; Visit Provider Surgery
DX: E66.01 Morbid (severe) obesity due to excess calories (principal)
CPT/HCPCS: 99213

== ENCOUNTER → 2023-04-15 08:18 | Outpatient (BNVA) | payer OTHER, SELFPAY | PROVIDERS: PCP Family Medicine; Visit Provider Surgery ==

== ENCOUNTER 2023-04-19 14:31 | Outpatient (AMB) | payer OTHER, SELFPAY ==
--- NOTE | 2023-04-19 14:15 | MHC.WMTHER ---
Intake Intake Visit Reasons: VIDEO f/u Allergies No Known Allergies Allergy (Verified 02/03/23 10:42) FORMERLY [facility], [facility] Medical History (Updated 04/22/23 @ 12:30 by Bianca Eaton) Knee pain Back pain Anxiety Depression Herpes, genital Sleep apnea treated with continuous positive airway pressure (CPAP) Hypertension Non-insulin dependent type 2 diabetes mellitus Morbid obesity Surgical History (Updated 02/03/23 @ 10:50 by Alfredito Field MD) H/O wisdom tooth extraction History of carpal tunnel release of both wrists History of tonsillectomy Behavioral Health Assessment Weight Management Therapy Therapy Notes Details Natasha discussed medications, not feeling much of a difference with any of them, feeling overwhelmed. Doing well in the program, continuing therapy and trying to manage symptoms of ADHD. Pt is looking to have weight loss surgery to help improve her health and quality of life. She reported being in pain and tired. Also worries about her health. Patient is in therapy with Giselle Flores bi weekly. She is taking medication for anxiety and depression by her primary care doctor due to depression each time she had children. Also diagnosed with ADHD and given Well butrin to help with weight loss, ADHD, and anxiety. Presenting Concerns Referral Source provider Reason for referral weight loss surgery evaluation Precipitating Event obesity Living Situation Current Living Situation Own At risk of losing current housing? No Satisfied with current living situation? Yes Comments Patient lives with her and three children ages 5, 8, and 10 years old. Food/Weight/Diet Expectations of change weight loss and maintenance History/Relationship with food Pt stated that she is an emotional eater and boredom eater. Pt stated that since getting her ADHD diagnosis it has help to better understand her rel. with food. (dopamine seeking behaviors). Patient stated that she would often eat large quantities of food when not hungry, also clearing her plate. History/Relationship with weight She reported life long struggles with weight. Natasha stated that in high school she remembers restricting food sometimes and also a few times she had made herself throw up (she stated that she was not committed enough for it to be an issue). History/Relationship with dieting She reported being on every single diet , gaining, and loosing many different times. Natasha described multiple times where she has been able to loose 100lbs through a program or weight loss plan. Binge Eating Do you frequently eat large amounts of food in short periods of time, not feeling physically hungry? Yes Do you feel out of control when you eat a large amount of food in a short period of time? Yes Do you eat large amounts of food rapidly and typically alone? Yes Night Eating Do you wake up at least once during the night to eat? No If you wake up in the night, do you find that it is necessary to eat something in order to fall back asleep? No Do you have little or no appetite in the morning and feel very hungry in the evening, often overeating between dinner and when you go to bed? No Social History Family history and relationship Pt stated that she was [place], she is the oldest of 4 siblings. Most of her family has moved up to this area . She has one sister down south. Her mom, step father, brother, grandmother and aunt live near by. Parental/Familial finisher accordion obligations children, 3 young boys Developmental history and status Natasha stated that she has had undiagnosed ADHD most of her life. Social support family, aunt, friends, Cultural/Ethnic information Legal Involvement and History Current or historical involvement with the legal system? none Education Highest grade completed high school, real estate Preferred learning style Auditory, Verbal, Written, Learn by doing and Visual Currently enrolled in educational program? No Interested in further educational program? 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 No Meaningful activities baking, Financial Situation Describe current financial situation Comfortable Financial assistance? None Service Service? No Mental Health and Addiction Treatment Current/Past substance abuse? No Current/Past addictive behavior concerns? No Medical and Physical Health Summary Physical exam in the last year? Yes Pain Screening Current pain? No Pain in the last few months? No Medications Is the patient compliant with medications? Yes Does the patient have Borges Guardian in place? Not applicable Does the patient use complimentary health approaches? No Questionnaires PHQ-9 Over the last 2 weeks, how often have you been bothered by any of the following problems? 1. Little interest or pleasure in doing things: not at all 2. Feeling down, depressed, or hopeless: several days 3. Trouble falling or staying asleep, or sleeping too much: nearly every day 4. Feeling tired or having little energy: several days 5. Poor appetite or overeating: not at all 6. Feeling bad about yourself - or that you are a failure or have let yourself or your family down: several days 7. Trouble concentrating on things, such as reading the newspaper or watching television: several days 8. Moving or speaking so slowly that other people could have noticed. Or the opposite - being so fidgety or restless that you have been moving around a lot more than usual: not at all 9. Thoughts that you would be better off or of hurting yourself in some way: not at all Total score: 7 Source: Developed by Drs. Rashard Duenas, Jodi Shaikh, Pravin Haley and colleagues, with an educational rashmi from [employer]. Binge Eating Scale Group 1 A. I don't feel self-conscious about my wt. or body size when I'm with others. B. I feel concerned about how I look to others, but it normally does not make me fell disappointed with myself C. I do get self-conscious about my appearance and wt. which makes me feel disappointed in myself. D. I feel very self-conscious about my wt. and frequently I feel intense shame and disgust for myself. I try to avoid social contacts because of my self-consciousness. Response Group 1: B Group 2 A. I don't have any difficulty eating slowly in the proper manner. B. Although I seem to gobble down foods, I don't end up feeling stuffed because of eating to much. C. At times, I tend to eat quickly and then, I feel uncomfortably full afterwards. D. I have the habit of bolting down my food, without really chewing it. When this happens I usually feel uncomfortably stuffed because I've eaten to much. Response Group 2: C Group 3 A. I feel capable to control my eating urges when I want to. B. I feel like I have failed to control my eating more than the average person. C. I feel utterly helpless when it comes to feeling in control of my eating urges. D. Because I feel so helpless about controlling my eating I have become very desperate about trying to get control. Response Group 3: B Group 4 A. I don't have the habit of eating when I'm bored. B. I sometimes eat when I'm bored, but often I'm able to get busy and get my mind off food. C. I have a regular habit of eating when I'm bored, but occasionally, I can use some other activity to get my mind off eating. D. I have a strong habit of eating when I'm bored. Nothing seems to help me breath the habit. Response Group 4: C Group 5 A. I'm usually physically hungry when I eat something. B. Occasionally, I eat something on impulse even though I really am not hungry. C. I have the regular habit of eating foods, that I might not really enjoy, to satisfy a hungry feeling even though physically, I don't need the food. D. Although I'm not physically hungry, I get a hungry feeling in my mouth that only seems to be satisfied when I eat a food, like sandwich, that fills my mouth. Sometimes, when I eat the food to satisfy my mouth hunger, I then spit the food out so I won't gain weight. Response Group 5: C Group 6 A. I don't feel any guilt or self-hate after I overeat. B. After I overeat, occasionally I feel guilt or self-hate. C. Almost all the time I experience strong guilt or self-hate after I overeat. Response Group 6: B Group 7 A. I don't lose total control of my eating when dieting even after periods when I overeat. B. Sometimes when I eat a forbidden food on a diet, I feel like I blew it and eat even more. C. Frequently, I have the habit of saying to myself, I've blown it now, why not go all the way, when I overeat on a diet. When that happens I eat more. D. I have a regular habit of starting a strict diets for myself but I break the diets by going on an eating binge. My life seems to be either a feast or famine. Response Group 7: B Group 8 A. I rarely eat so much food that I feel uncomfortably stuffed afterwards. B. Usually about once a month, I each such a quantity of food, I end up feeling very stuffed. C. I have regular periods during the month when I eat large amounts of food, either at mealtime or at snacks. D. I eat so much food that I regularly feel quite uncomfortable after eating and sometimes a bit nauseous. Response Group 8: C Group 9 A. My level of calorie intake does not go up very high or go down very low on a regular basis. B. Sometimes after I overeat, I will try to reduce my caloric intake to almost nothing to compensate for the excess calories I've eaten. C. I have a regular habit of overeating during the night. It seems that my routine is not to be hungry in the morning but overeat in the evening. D. In my adult years, I have had week-long periods where I practically starve myself. This follows periods when I overeat. It seems I live a life of either feast or famine. Response Group 9: A Group 10 A. I usually am able to stop eating when I want to. I know when enough is enough. B. Every so often, I experience a compulsion to eat which I can't seem to control. C. Frequently, I experience strong urges to eat which I seem unable to control, but at other times I can control my eating urges. D. I feel incapable of controlling urges to eat. I have a fear of not being able to stop eating voluntarily. Response Group 10: C Group 11 A. I don't have any problem stopping eating when I feel full. B. I usually can stop eating when I feel full but occasionally overeat leaving me feeling uncomfortably stuffed. C. I have a problem stopping eating once I start and usually I feel uncomfortably stuffed after I eat a meal. D. Because I have a problem not being able to stop eating when I want, I sometimes have to induce vomiting to relieve my stuffed feeling. Response Group 11: B Group 12 A. I seem to eat just as much when I'm with others, Family social gatherings as when I'm by myself. B. Sometimes, when I'm with other persons, I don't eat as much as I want to eat because I'm self-conscious about my eating. C. Frequently, I eat only a small amount of food when others are present, because I'm very embarrassed about my eating. D. I feel so ashamed about overeating that I pick times to overeat when I know no one will see me. I feel like a closet eater. Response Group 12: B Group 13 A. I eat three meals a day with only an occasional between meal snack. B. I eat 3 meals a day, but I also normally snack between meals. C. When I am snacking heavily, I get in the habit of skipping regular meals. D. There are regular periods when I seem to be continually eating, with no planned meals. Response Group 13: B Group 14 A. I don't think much about trying to control unwanted eating urges. B. At least some of the time, I feel my thoughts are pre-occupied with trying to control my eating urges. C. I feel that frequently I spend much time thinking about how much I ate or about trying not to eat anymore. D. It seems to me that most of my waking hours are pre-occupied by thoughts about eating or not eating. I feel like I'm constantly struggling not to eat. Response Group 14: B Group 15 A. I don't think about food a great deal. B. I have strong craving for food but they last only for brief periods of time. C. I have days when I can't seem to think about anything else but food. D. Most of my days seem to be pre-occupied with thoughts about food. I feel like I live to eat. Response Group 15: C Group 16 A. I usually know whether or not I'm physically hungry. I take the right portion of food to satisfy me. B. Occasionally, I feel uncertain about knowing whether or not I'm physically hungry. A these times it's hard to know how much food I should take to satisfy me. C. Even though I might know how many calories I should eat, I don't have any idea what is a normal amount of food for me. Response Group 16: B Binge Eating Score: 21 Score less than 17 Minimal Risk Score between 18-26 Moderate Risk Score between 27-46 High Risk Assessment & Plan Assessment & Plan (1) ADHD (attention deficit hyperactivity disorder), combined type: Code(s): F90.2 - Attention-deficit hyperactivity disorder, combined type (2) Morbid obesity: Code(s): E66.01 - Morbid (severe) obesity due to excess calories Plan Patient recently diagnosed with ADHD, these symptoms exacerbate or contribute to anxiety and depression due to making everyday life more unmanageable, also helps to understand her relationship with food. She is continuing to work with her mental health providers. Patient will be seen again and is cleared for surgery when ready. Telehealth Telehealth Location of provider rendering services: other Location of patient: address on file Patient Identification confirmed using: Name, : Yes Telehealth method: video Patient verbally consented to treatment: Yes Patient verbally consented to billing insurance company: Yes Patient informed of any privacy concerns related to visit: Yes Minutes spent on Phone/Video with Pt.: 40 Coding Level of Care Code Tele Psytx 45 mins (70937) Diagnoses ADHD (attention deficit hyperactivity disorder), combined type F90.2 Morbid obesity E66.01 Time Spent (min) 40
== END 2023-04-22 12:04 | disposition home or self-care (01) ==
LOC: HO.HBST 14:31
PROVIDERS: PCP Family Medicine; Visit Provider Counselor Mental Health
DX: F90.2 Attention-deficit hyperactivity disorder, combined type (principal); E66.01 Morbid (severe) obesity due to excess calories
CPT/HCPCS: 90834

== ENCOUNTER → 2023-04-19 14:31 | Outpatient (BNVA) | payer OTHER, SELFPAY | PROVIDERS: PCP Family Medicine; Visit Provider Counselor Mental Health ==

== ENCOUNTER 2023-04-22 08:47 | Outpatient (REF) | payer OTHER, SELFPAY ==
--- NOTE | ~2023-04-22 | FL_ITS ---
EXAMINATION: XR FLUOROSCOPY UPPER GI WITH AIR CLINICAL INFORMATION: Preop evaluation prior to surgery COMPARISON: None TECHNIQUE: Fluoroscopic air contrast upper GI examination was performed utilizing standard techniques with thin and thick barium and effervescent granules. Numerous spot images were obtained. FINDINGS: Dual and single contrast images of the esophagus demonstrate normal caliber, contour, and mucosal pattern. No evidence of stricture, mass, or ulcerations identified. Esophageal peristalsis was normal. A small hiatal hernia is present. No significant gastroesophageal reflux was seen during the course of the examination and on reflux views. Dual contrast and single contrast images of the stomach demonstrated normal contour. Evaluation of the gastric mucosa is limited due to poor coating, however, there is no gross evidence of mass, ulceration, or other abnormality. Contrast freely passed into the gastric antrum and duodenal bulb without delay. Single and air-contrast images of the duodenal bulb demonstrate no abnormality. The duodenal sweep has a normal appearance, course, and mucosal fold appearance. No malrotation. The imaged proximal jejunum has a normal fold pattern and caliber. FLUOROSCOPY TIME: 2 minutes 42 seconds Number of Spot Images: 11 Number of Cine: 7 DOSE AREA PRODUCT: [id number] uGy-m2 (microgray-meter squared) FL/FL upper GI w air IMPRESSION: 1. Small type I hiatal hernia This procedure was performed by Robinson Castro PA-C, and supervised by Dr. Stewart
== END 2023-04-22 08:48 | disposition home or self-care (01) ==
LOC: HO.XRAY 08:47
PROVIDERS: PCP Family Medicine; Visit Provider Surgery
DX: E66.01 Morbid (severe) obesity due to excess calories (principal); E11.9 Type 2 diabetes mellitus without complications
CPT/HCPCS: 74246

== ENCOUNTER → 2023-04-22 08:48 | Outpatient (BNV) | payer OTHER, SELFPAY | PROVIDERS: PCP Family Medicine; Visit Provider Radiology Diagnostic Radiology | DX: Z01.818 Encounter for other preprocedural examination (principal) | CPT/HCPCS: 74246 ==

== ENCOUNTER 2023-05-06 08:11 | Outpatient (AMB) | payer OTHER, SELFPAY ==
[2023-05-06 12:22] VITALS: BMI 41.5
--- NOTE | 2023-05-06 12:22 | MHC.OFFVISWM ---
Intake VS Expanded 05/06/23 12:22 Height 5 ft 10 in Weight 289 lb 2 oz BMI 41.5 Body Fat % 53.9 Body Fat Mass 155.8 Fat Free Mass 133.3 Body Water % 43 Body Water Mass 124.3 Intake Visit Reasons: TV Follow Up SWL Allergies No Known Allergies Allergy (Verified 02/03/23 10:42) HPI TV Follow Up SWL HPI Details Start time: 12.09pm, End time: 12.29pm ?I spent 15 minutes speaking with the patient on the phone plus an additional 5 minutes reviewing and updating records for a total of 20 minutes HPI Comments History of Present Illness Details Overall weight loss: 17.2lbs, or 5.4% TBWL Is doing a protein shake (2 scoops) , 3 protein bars and one meal (12 forks of protein and 12 forks of salad Exercise: is doing home treadmill x 4/week for 400 calories (speed and incline) and gym x 2/wk (HIT classes) [facility] Medical History (Updated 04/22/23 @ 12:30 by Bianca Eaton) Knee pain Back pain Anxiety Depression Herpes, genital Sleep apnea treated with continuous positive airway pressure (CPAP) Hypertension Non-insulin dependent type 2 diabetes mellitus Morbid obesity Surgical History (Updated 02/03/23 @ 10:50 by Alfredito Field MD) H/O wisdom tooth extraction History of carpal tunnel release of both wrists History of tonsillectomy Assessment & Plan Assessment & Plan (1) Morbid obesity: Code(s): E66.01 - Morbid (severe) obesity due to excess calories Plan: 1. Plan for lap sleeve gastrectomy including upper GI endoscopy. All tests has been completed and reviewed and the patient is cleared for the surgery. ?If diaphragmatic or ventral hernias are present at time of surgery, these will be repaired laparoscopically as well. Risks and complications were discussed in detail including possible conversion to an open procedure, anastomotic leak, bleeding requiring transfusion, small bowel obstruction, , DVT and pulmonary embolism, cardiac, or pulmonary complications, as shelter complications such as anastomotic ulcer, insufficient weight loss and vitamin deficiencies. I emphasized the importance of close follow-up, adherence to instructions and good communication. So far she has proven to be an excellent communicator and very compliant with all our directions accomplishing a great weight loss. I believe that she is an excellent candidate and she is ready. 2. Continue same nutritional and exercise plan Telehealth Telehealth Location of provider rendering services: practice address Location of patient: address on file Patient Identification confirmed using: Name, : Yes Telehealth method: voice only Patient verbally consented to treatment: Yes Patient verbally consented to billing insurance company: Yes Patient informed of any privacy concerns related to visit: Yes Minutes spent on Phone/Video with Pt.: 20 Coding Level of Care Code Tele Est Pt Level 3 (12469) Diagnoses Morbid obesity E66.01 Time Spent (min) 20
== END 2023-05-06 12:29 | disposition home or self-care (01) ==
LOC: HO.HBS 08:11
PROVIDERS: PCP Family Medicine; Visit Provider Surgery
DX: E66.01 Morbid (severe) obesity due to excess calories (principal)
CPT/HCPCS: 99213

== ENCOUNTER → 2023-05-06 08:11 | Outpatient (BNVA) | payer OTHER, SELFPAY | PROVIDERS: PCP Family Medicine; Visit Provider Surgery ==

== ENCOUNTER 2023-05-26 08:05 | Outpatient (AMB) | payer OTHER, SELFPAY ==
[2023-05-26 12:20] VITALS: BMI 40.5
--- NOTE | 2023-05-26 12:20 | A.OFFVIS_ITS ---
Intake VS Expanded 05/26/23 12:20 Height 5 ft 10 in Weight 282 lb 8 oz BMI 40.5 Body Fat % 52.7 Body Fat Mass 149 Fat Free Mass 133.7 Body Water % 43 Body Water Mass 121.6 Intake Visit Reasons: TV Follow Up SWL Allergies No Known Allergies Allergy (Verified 02/03/23 10:42) HPI TV Follow Up SWL HPI Details Start time: 12.04pm, End time: 12.26pm ?I spent 17 minutes speaking with the patient on the phone plus an additional 5 minutes reviewing and updating records for a total of 22 minutes HPI Comments History of Present Illness Details Has lost 30lbs or 9.40% TBWl in our program Now she would like to try the Wegovy. We tried the 2.4mg dose but caused significant nausea. the 1.7mg was prescribed. [facility] Medical History (Updated 05/20/23 @ 11:00 by Alfredito Field MD) Knee pain Back pain Anxiety Depression Herpes, genital Sleep apnea treated with continuous positive airway pressure (CPAP) Hypertension Non-insulin dependent type 2 diabetes mellitus Morbid obesity Surgical History (Updated 02/03/23 @ 10:50 by Alfredito Field MD) H/O wisdom tooth extraction History of carpal tunnel release of both wrists History of tonsillectomy Assessment & Plan Assessment & Plan (1) Morbid obesity: Code(s): E66.01 - Morbid (severe) obesity due to excess calories Plan: 1. We discussed the nutriitonal options that she has: 1) continue the same nutriitonal plan I have prescribed previously and 2) to have 3 regular food meals traacking calories with a goal to create a 500 calorie deficit per day based on GLP-1 trials. The patient opted to the second option. 2. Exercise: Per GLP-1 trial protocols, the goal is to exercise for 150 min per week 3. I asked her to let me know if she experiences any GI symptoms with the 1.7mg dose and also whether she feels hungry between breakfast, lunch and dinner 4. Continue to send me weight measurements weekly on Fridays Telehealth Telehealth Location of provider rendering services: practice address Location of patient: address on file Patient Identification confirmed using: Name, : Yes Telehealth method: voice only Patient verbally consented to treatment: Yes Patient verbally consented to billing insurance company: Yes Patient informed of any privacy concerns related to visit: Yes Minutes spent on Phone/Video with Pt.: 22 Coding Level of Care Code Tele Est Pt Level 3 (22566) Diagnoses Morbid obesity E66.01 Time Spent (min) 22
== END 2023-05-26 12:27 | disposition home or self-care (01) ==
LOC: HO.HBS 08:05
PROVIDERS: PCP Family Medicine; Visit Provider Surgery
DX: E66.01 Morbid (severe) obesity due to excess calories (principal)
CPT/HCPCS: 99213

== ENCOUNTER → 2023-05-26 08:05 | Outpatient (BNVA) | payer OTHER, SELFPAY | PROVIDERS: PCP Family Medicine; Visit Provider Surgery ==

== ENCOUNTER → 2023-07-05 14:51 | Outpatient (BNVA) | payer OTHER, SELFPAY | PROVIDERS: PCP Family Medicine; Visit Provider Physician Assistant Surgical ==